=== PATIENT | male | born 1945 | race Hispanic/Latino ===

== ENCOUNTER 2019-09-05 15:22 | Emergency (ER) | payer MEDICARE ==
[~2019-09-05] VITALS: Ht 157.5 cm; Wt 58.1 kg
[2019-09-05] MEDS ORDERED: CLONIDINE HCL 0.2 MG TAB PO ONE (15:45)
--- NOTE | 2019-09-05 15:50 | Emergency Department Note ---
History of Present Illnes History of Present Illness History of Present Illness This is a 74 year old male hx htn here for for high blood pressure in 200's, no symptoms no f/c no sob no c/p no headache, no weakness no blurred visions . Historian: Patient Arrival Mode: Car Baffle Mounter Required: Yes Onset (how long ago): day(s) Radiation: Reports non-radiation Onset quality: gradual Progression: waxing and waning Relieving factors: none Exacerbating factors: none Associated symptoms: Reports denies other symptoms Treatments prior to arrival: none Past Medical/Family History Physician Review I have reviewed the patient's past medical and family history. Any updates have been documented here. Past Medical History Recent Fever: No Clinical Suspicion of Infectio: No Past Medical History: Hypertension, CVA, Hyperlipedemia Past Surgical History: None Social History Smoking Cessation: Unknown if ever smoked Any Illegal Drug Use: No TB Exposure/Symptoms: No Physically hurt or threatened: No Family History Family history of heart diseas: No Other Any Pre-Existing Lines (PICC,: No Review of Systems Review of Systems Constitutional: Reports no symptoms EENTM: Reports no symptoms Cardiovascular: Reports no symptoms Respiratory: Reports no symptoms Gastrointestinal: Reports no symptoms Genitourinary: Reports no symptoms Musculoskeletal: Reports no symptoms Integumentary: Reports no symptoms Neurological: Reports no symptoms Psychological: Reports no symptoms Endocrine: Reports no symptoms Hematological/Lymphatic: Reports no symptoms Physical Exam Related Data Allergies: Coded Allergies: No Known Allergies (Unverified , 09/05/19) Vital signs reviewed: Yes (BP i shigh) Physical Exam CONSTITUTIONAL Constitutional: Present well-developed, Present well-nourished HENT HENT: Present normocephalic, Present atraumatic, Present oropharynx clear/moist, Present nose normal HENT L/R: Present left ext ear normal, Present right ext ear normal EYES Eyes: Reports PERRL, Reports conjunctivae normal NECK Neck: Present ROM normal PULMONARY Pulmonary: Present effort normal, Present breath sounds normal CARDIOVASCULAR Cardiovascular: Present regular rhythm, Present heart sounds normal, Present capillary refill normal, Present normal rate GASTROINTESTINAL Abdominal: Present soft, Present nontender, Present bowel sounds normal GENITOURINARY Genitourinary: Present exam deferred SKIN Skin: Present warm, Present dry MUSCULOSKELETAL Musculoskeletal: Present ROM normal NEUROLOGICAL Neurological: Present alert, Present oriented x 3, Present no gross motor or sensory deficits PSYCHOLOGICAL Psychological: Present mood/affect normal, Present judgement normal Results Laboratory Lab results reviewed: Yes Laboratory comments trop I normal; Procedures 12 Lead ECG Interpretation ECG Interpretation : ECG: ECG 1 Baffle Mounter: Interpreted by ED physician Date: Sep 05, 2019 Time: 15:38 Prior ECG tracings: reviewed Rhythm: sinus rhythm Rate: normal QRS axis: normal ST segments normal: Yes T waves flattening: V3, V4, V5, V6 Clinical Impression: normal ECG Assessment & Plan Medical Decision Making MDM uncontrolled htn Reassessment Reassessment blood pressure looks better Assessment & Plan Final Impression: (1) Hypertensive urgency Depart Disposition: HOME, SELF-long term Meds Active Scripts Amlodipine Besylate (AMLODIPINE BESYLATE) 10 Mg Tablet, 10 MG PO DAILY, #30 TAB Prov:ERNST VELASQUEZ MD 09/05/19 ERNST VELASQUEZ MD Sep 05, 2019 15:49
[2019-09-05] MEDS ORDERED: CLONIDINE HCL 0.1 MG TAB ONE (16:11)
[2019-09-05] MEDS ORDERED: AMLODIPINE BESY10 MG PO (16:19)
[2019-09-05 16:50] VITALS: BP 157/72
== END 2019-09-05 17:06 | disposition home or self-care (01) ==
LOC: FSED 15:59
DX: I16.0 Hypertensive urgency (principal); I10 Essential (primary) hypertension; E78.5 Hyperlipidemia, unspecified; Z86.73 Personal history of transient ischemic attack (TIA), and cerebral infarction without residual deficits
CPT/HCPCS: 80053; 82553; 84484; 85025; 93005; 99283

== ENCOUNTER 2023-12-18 19:25 | Emergency (ER) | payer MEDICARE ==
[~2023-12-18] VITALS: Ht 157.5 cm; Wt 58.1 kg
[~2023-12-18 19:25] MED LIST: AMLODIPINE BESY10 MG PO
[2023-12-18] MEDS: ASPIRIN 325 MG TAB PO ONE (23:26)
[2023-12-18 23:41] VITALS: PULSE 73; RESP 18; TEMP 98.9; O2SAT 100
== END 2023-12-18 23:59 | disposition other institution (70) ==
LOC: FSED 19:35
DX: H53.40 Unspecified visual field defects (principal); I10 Essential (primary) hypertension; E78.5 Hyperlipidemia, unspecified; I69.354 Hemiplegia and hemiparesis following cerebral infarction affecting left non-dominant side
CPT/HCPCS: 36415; 70450; 80053; 82948; 84484; 85025; 85610; 93005; 99284

== ENCOUNTER → 2024-01-22 | Outpatient (REF) | payer MEDICARE | LOC: CT 07:26 | PROVIDERS: ATTEND Family Medicine | DX: Z12.2 Encounter for screening for malignant neoplasm of respiratory organs (principal) | CPT/HCPCS: 71250 ==